=== PATIENT | female | born 1940 | race Two or more races ===

== ENCOUNTER 2017-08-12 11:15 | Inpatient (IN) | payer MEDICARE, OTHER ==
[~2017-08-12] VITALS: Ht 147.3 cm; Wt 63.0 kg
[~2017-08-12 11:15] MED LIST: AMLO5TAB4 PO; ASPI-430 PO; ATOR20TA9 PO; CALC-545 PO; CHLO25TA PO; DOXY100C2 PO; LOSA25TA5 PO; MECL25TA2 PO
[2017-08-12] MEDS ORDERED: POTA10TA5 PO (11:21)
[2017-08-12] MEDS ORDERED: PLEASE ENTER HEIGHT AND WEIGHT MC SCH (11:30)
[2017-08-12] MEDS ORDERED: SODIUM CHLORIDE FLUSH 10ML SYR IVF ONE (11:30)
[2017-08-12] MEDS ORDERED: SODIUM CHLORIDE 0.9% 1,000ML IVBOLUS ONE (11:30)
[2017-08-12] MEDS ORDERED: DOXA2TAB PO (11:37)
[2017-08-12 11:51] LABS: HEMATOCRIT 34.6 % (34.6-47.8); HEMOGLOBIN 11.5 g/dL (11.7-16.4); WHITE BLOOD COUNT 5.6 x10^3/uL (3.4-10)
[2017-08-12 12:03] LABS: ASPARTATE AMINO TRANSFERASE 18 U/L (15-37); BLOOD UREA NITROGEN 12 mg/dL (7-18)
[2017-08-12 12:09] LABS: IS PT STATUS REG ER OR PRE ER? YES
[2017-08-12] MEDS ORDERED: CARV12.543 PO (14:11)
[2017-08-12] MEDS ORDERED: POTA20TA14 PO (14:11)
[2017-08-12] MEDS ORDERED: OMEP-110 PO (14:11)
[2017-08-12] MEDS ORDERED: ATOR40TA78 PO (14:11)
[2017-08-12] MEDS ORDERED: DOXY50TA9 PO (14:11)
[2017-08-12] MEDS ORDERED: MECL-76 PO (14:11)
[2017-08-12] MEDS ORDERED: MECLIZINE CHEWABLE 25 MG TAB PO PRN (15:00)
[2017-08-12] MEDS ORDERED: ONDANSETRON 2MG/ML, 2ML IVPush PRN (15:00)
[2017-08-12] MEDS ORDERED: ENOXAPARIN 40 MG/0.4 ML SQ SCH ×2 (15:00→18:00)
[2017-08-12] MEDS ORDERED: ONDANSETRON ODT 4 MG PO PRN (15:00)
[2017-08-12 17:56] VITALS: BP 177/77
[2017-08-12 18:31] LABS: IS PT STATUS REG ER OR PRE ER? NO
[2017-08-12 18:34] VITALS: BP 167/82
[2017-08-12] MEDS: SODIUM CHLORIDE 0.9% 1,000 ML IV SCH (19:59)
[2017-08-12] MEDS: DOXYCYCLINE 100MG TABLET PO SCH ×2 (20:59→21:00)
[2017-08-12] MEDS ORDERED: ATORVASTATIN 40 MG TABLET PO SCH (21:00)
[2017-08-12] MEDS ORDERED: DOXAZOSIN 2MG TABLET PO SCH (21:00)
[2017-08-12 21:26] LABS: PATH.CAST-FLAG NOT PRESENT; SPERM-FLAG NOT PRESENT; SRC-FLAG NOT PRESENT; XTAL-FLAG NOT PRESENT; YLC-FLAG NOT PRESENT
[2017-08-12 23:12] VITALS: BP_SYST 154; BP_SYST 157; BP_SYST 165; BP_DIAS 71; BP_DIAS 77; BP_DIAS 89
[2017-08-13 00:30] VITALS: BP 161/79
[2017-08-13 00:45] LABS: IS PT STATUS REG ER OR PRE ER? NO
[2017-08-13 05:30] LABS: HEMATOCRIT 38.5 % (34.6-47.8); WHITE BLOOD COUNT 5.3 x10^3/uL (3.4-10)
[2017-08-13 05:42] LABS: BLOOD UREA NITROGEN 9 mg/dL (7-18)
[2017-08-13 05:46] LABS: ASPARTATE AMINO TRANSFERASE 18 U/L (15-37)
[2017-08-13 06:09] VITALS: BP 161/79
[2017-08-13 06:49] VITALS: BP 157/75
[2017-08-13] MEDS ORDERED: OMEPRAZOLE 20 MG CAPSULE.DR PO SCH (08:00)
[2017-08-13] MEDS: SODIUM CHLORIDE 0.9% 1,000 ML IV SCH (08:38)
[2017-08-13] MEDS ORDERED: ASPIRIN 81 MG TABLET EC PO SCH (09:00)
[2017-08-13] MEDS ORDERED: AMLODIPINE 5 MG TABLET PO SCH (09:00)
[2017-08-13] MEDS ORDERED: REGADENOSON 0.4 MG/5 ML SYRINGE ONE (11:41)
[2017-08-13] MEDS: DOXYCYCLINE 100MG TABLET PO SCH (12:39)
[2017-08-13 14:04] VITALS: BP 139/73
== END 2017-08-13 16:58 | disposition home or self-care (01) | DRG 149 ==
LOC: ED 13:03 → EDIP 13:49 → 4WST 15:05 → 5SO 15:25
PROVIDERS: ADMIT Family Medicine; ATTEND Family Medicine
DX: H81.10 Benign paroxysmal vertigo, unspecified ear (principal); I95.9 Hypotension, unspecified; R00.1 Bradycardia, unspecified; E02 Subclinical iodine-deficiency hypothyroidism; I10 Essential (primary) hypertension; E78.5 Hyperlipidemia, unspecified; H54.7 Unspecified visual loss; Z83.3 Family history of diabetes mellitus; Z90.710 Acquired absence of both cervix and uterus; Z90.49 Acquired absence of other specified parts of digestive tract; Z79.82 Long term (current) use of aspirin; Z79.899 Other long term (current) drug therapy
CPT/HCPCS: 36415; 70450; 78452; 80053; 80061; 81001; 81003; 83036; 83605; 84439; 84443; 84484; 85025; 93005; 93017; 93306; 93880; 96360; 96361; J1650; J2785; A9502; C9898; J7030